=== PATIENT | female | born 1965 | race Hispanic/Latino ===

== ENCOUNTER → 2020-05-11 | Outpatient (CLI) | payer BC | END | disposition home or self-care (01) | LOC: RAH 10:09 | PROVIDERS: ATTEND Internal Medicine Cardiovascular Disease | DX: R07.89 Other chest pain (principal); V89.2XXA Person injured in unspecified motor-vehicle accident, traffic, initial encounter; X58.XXXA Exposure to other specified factors, initial encounter; Y93.89 Activity, other specified; Y92.89 Other specified places as the place of occurrence of the external cause; Y99.8 Other external cause status | CPT/HCPCS: 93306; 93356 ==

== ENCOUNTER 2023-08-13 17:00 | Emergency (ER) | payer OTHER, MEDICARE ==
[~2023-08-13] VITALS: Ht 152.4 cm; Wt 58.1 kg
[2023-08-13 21:22] VITALS: BP 149/77; PULSE 66; RESP 19; O2SAT 97
[2023-08-13] MEDS: HYDROCODONE/ACETAMINOPHEN 5/325 MG TAB PO ONE (21:30)
[2023-08-13] MEDS ORDERED: ACET-2079 PO (21:42)
[2023-08-13] MEDS ORDERED: IBUP-2070 PO (21:42)
== END 2023-08-13 22:04 | disposition home or self-care (01) ==
LOC: EDH 17:00
DX: S52.612A Displaced fracture of left ulna styloid process, initial encounter for closed fracture (principal); S52.502A Unspecified fracture of the lower end of left radius, initial encounter for closed fracture; E11.9 Type 2 diabetes mellitus without complications; Z98.890 Other specified postprocedural states; W01.0XXA Fall on same level from slipping, tripping and stumbling without subsequent striking against object, initial encounter; Y93.89 Activity, other specified; Y92.89 Other specified places as the place of occurrence of the external cause; Y99.8 Other external cause status
CPT/HCPCS: 29125; 72100; 73030; 73090; 73110; 73130

== ENCOUNTER 2025-05-15 09:27 | Emergency (ER) | payer OTHER ==
[~2025-05-15] VITALS: Ht 152.4 cm; Wt 57.6 kg
[2025-05-15 11:03] LABS: IMMATURE GRANULOCYTE ABSOLUTE 0.02 K/uL (0-1); NUCLEATED RED BLOOD CELLS 0.0 % (0.0-0.19); PLATELET COUNT (AUTO) 295 K/uL (130-400); RED BLOOD CELL COUNT(AUTO) 5.04 MIL/uL (4.00-5.50); RED CELL DISTRIBUTION WIDTH 12.8 % (11.0-15.5); WHITE BLOOD COUNT (AUTO) 7.1 K/uL (4.8-10.8)
[2025-05-15] MEDS: 0.9%NACL 1000ML 1,000 ML IV ONE (11:05)
[2025-05-15 11:14] LABS: CREATININE 0.6 mg/dL (0.5-1.0); GLOMERULAR FILTR. RATE CALC 103.0 mL/min (>90); GLUCOSE,RANDOM 104.0 mg/dL (70-105); SODIUM SERUM 139.0 mmol/L (136-145); UREA NITROGEN, BLOOD 12.0 mg/dL (7-18)
[2025-05-15 11:18] LABS: ASPARTATE AMINOTRANSFERASE 19.0 U/L (10-37); CREATINE KINASE, TOTAL 67.0 U/L (21-232); TOTAL PROTEIN, SERUM 7.6 g/dL (6.0-8.3)
--- NOTE | 2025-05-15 11:24 | HMCIMG ---
EXAM: CT Abdomen and Pelvis Without IV contrast CLINICAL HISTORY: left flank pain TECHNIQUE: Axial computed tomography images of the abdomen and pelvis without intravenous contrast. CONTRAST: No IV contrast. COMPARISON: None provided. FINDINGS: LUNG BASES: The lung bases appear clear. No pleural effusions are seen. LIVER: Unremarkable. GALLBLADDER AND BILE DUCTS: The gallbladder appears within normal limits. No radioopaque gallstones are seen. No biliary ductal dilatation is evident. PANCREAS: Unremarkable. SPLEEN: Unremarkable. ADRENAL GLANDS: Unremarkable. KIDNEYS, URETERS, AND BLADDER: The kidneys appear within normal limits. There is no hydronephrosis or hydroureter. No urinary calculi are seen. STOMACH AND BOWEL: Unremarkable appearance of the stomach and bowel. No evidence of bowel obstruction. No evidence suggesting enteritis or colitis. APPENDIX: No evidence of acute appendicitis on CT examination. PERITONEUM: No free fluid. No free air. LYMPH NODES: No lymphadenopathy is evident. REPRODUCTIVE: Unremarkable as visualized. VASCULATURE: No evidence of abdominal aortic aneurysm. BONES: No aggressive appearing osseous lesion. No acute osseous pathology evident. IMPRESSION: No acute intra-abdominal or pelvic abnormality. /Lucille
--- NOTE | 2025-05-15 13:24 | EKG ---
[facility] Test Date: 2025-05-15 Test Time: 10:43:48 Pat Name: GIOVANNY CHOUDHURY Department: [facility] Room: Gender: F Technical Producer: [id number] : [id number] Requested By: GERMAN JETT Order Number: [id number] Reading MD: Vitaliy Garrett Measurements Intervals [place] Rate: 64 P: 54 [place]: 154 QRS: -36 QRSD: 89 T: 63 QT: 412 QTc: 427 Interpretive Statements Sinus rhythm Left axis deviation No previous ECG available for comparison Electronically Signed On 05-16-2025 08:51:06 HULL DRAFTER by Vitaliy Garrett Please click the below link to view image of tracing.
[2025-05-15 14:33] LABS: APPEARANCE,URINE CLEAR (CLEAR); GLUCOSE, URINE (UA) >=1000 mg/dL (NEGATIVE); LEUKOCYTE ESTERASE ,URINE NEGATIVE Leu/uL (NEGATIVE); NITRATE,URINE NEGATIVE (NEGATIVE); OCCULT BLOOD,URINE NEGATIVE (NEGATIVE)
[2025-05-15 14:35] LABS: ADD UA MICROSCOPIC YES
[2025-05-15 14:38] LABS: SQUAMOUS EPITHELIAL CELL,UR FEW /HPF (0-2)
--- NOTE | 2025-05-15 15:57 | ERN ---
ED Note History of Present Illness Stated Complaint: ABDOMINAL PAIN Chief Complaint: Abdominal Pain Time Seen by MD: 09:48 Dictation: 60-year-old female with lower abdominal pain radiates to left side, patient has recent history of UTI currently has midline catheter for IV antibiotics, patient denies fever chest pain shortness of breath or vomiting. Allergies: Coded Allergies: No Known Allergies (Unverified Allergy, Unknown, 08/13/23) Home Meds Active Scripts Insulin Lispro (Insulin Lispro) 100 Unit/Ml Vial, 10 UNIT SQ AD, #3 VIAL Prov:BASILIO DOS SANTOS IV, MD 04/28/25 Insulin Glargine,Hum.rec.anlog (Lantus Solostar) 100 Unit/Ml (3 Ml) Insuln.pen, 20 UNIT SQ HS for 30 Days, #6 ML 0 Refills Prov:BASILIO DOS SANTOS IV, MD 04/28/25 Reported Medications Celecoxib (Celecoxib) 100 Mg Capsule, 1 CAP PO DAILY for 10 Days, #20 CAP 0 Refills 04/25/25 Fluticasone Propionate (Flonase Nasal [place]) 50 Mcg/Actuation [place], 2 SPRAY NS DAILY, #16 GM 0 Refills 04/25/25 Loratadine (Loratadine) 10 Mg Tablet, 1 TAB PO DAILY for allergy symptoms for 30 Days, #30 TAB 0 Refills 04/25/25 Dulaglutide (Trulicity) 0.75 Mg/0.5 Ml Pen.injctr, 0.75 MG SQ QWEEK 04/25/25 Dicyclomine HCl (Dicyclomine HCl) 10 Mg Capsule, 1 CAP PO Q6HPRN PRN for irritable bowel symptoms for 25 Days, #100 CAP 0 Refills 04/25/25 Pregabalin (Pregabalin) 50 Mg Capsule, 1 CAP PO TID MDD 3 Capsule(s) for 30 Days, #90 CAP 0 Refills 04/25/25 Aspirin (Aspirin) 81 Mg Tab.chew, 1 TAB PO DAILY for 30 Days, #30 TAB 0 Refills 04/25/25 Hydroxyzine HCl (Hydroxyzine HCl) 10 Mg Tablet, 1 TAB PO DAILY for anxiety for 30 Days, #60 TAB 0 Refills 04/25/25 Cyclobenzaprine HCl (Cyclobenzaprine HCl) 5 Mg Tablet, 1 TAB PO HSPRN PRN for muscle spasms for 30 Days, #30 TAB 0 Refills 04/25/25 Lisinopril (Lisinopril) 2.5 Mg Tablet, 1 TAB PO DAILY for 30 Days, #30 TAB 0 Refills 04/25/25 Atorvastatin Calcium (Atorvastatin Calcium) 20 Mg Tablet, 1 TAB PO DAILY for 30 Days, #30 TAB 0 Refills 04/25/25 Esomeprazole Magnesium (Esomeprazole Magnesium) 40 Mg Capsule.dr, 1 CAP PO DAILY for 30 Days, #30 CAP 0 Refills 04/25/25 Duloxetine HCl (Duloxetine HCl) 60 Mg Capsule.dr, 1 CAP PO DAILY for 30 Days, #30 CAP 0 Refills 04/25/25 Empagliflozin (Jardiance) 10 Mg Tablet, 1 TAB PO DAILY for 30 Days, #30 TAB 0 Refills 04/25/25 Past Medical History Past Medical History: Arthritis, Diabetes-Type I, Diabetes-Type II, High Cholesterol, Hypertension Surgical History: Other Surgical History Other: CARPAL TUNNEL BILATERAL Social History: Negative, Lives with family History: Not Applicable Review of System Dictation Constitutional: Negative for fever,chills, and weight loss Eyes: Negative for injury, pain,redness, and discharge ENT: Negative for injury,pain or swelling Cardiovascular: Negative for chest pain, palpitations, and edema Respiratory: Negative for shortness of breath, cough, and wheezing, Abdomen/GI: Negative for abdominal pain, nausea, vomiting, diarrhea, and constipation Back: Per HPI : Per HPI MS/Extremity: Negative for injury and deformity Skin: Negative for rash, and discoloration Neuro: Negative for headache, weakness, numbness, tingling, and seizure Psych: Negative for suicide ideation, homicidal ideation, and hallucinations Initial Vital Sign VS Vital Signs Date Time Temp Pulse Resp B/P (MAP) Pulse Ox O2 Delivery O2 Flow Rate FiO2 05/15/25 09:28 98.2 71 20 116/68 99 Room Air 05/15/25 11:19 0 21 Physical Exam Dictation General: awake, alert, NAD Head/Face: Normocephalic, atraumatic Eyes: PERRL, EOMI, vision at baseline ENT: oral cavity clear, TMs clear, no signs of infection Neck: Trachea midline, supple, no nuchal rigidity Cardiovascular: RRR, normal S1/S2, No MRGs, no JVD Respiratory: CTAB, no respiratory distress, No rales or wheezes Abdomen: Soft, non-tender, non-distended, normal bowel sounds, no guarding or rebound. Skin: Warm, dry, normal turgor, no rash MS/Extremity: Pulses equal, no cyanosis, neurovascular intact, FROM Neuro: COAx4, GCS 15, strength 5/5, CN 2-12 intact, normal cerebellar exam, normal gait, Psych: Normal behavior, mood, and affect normal Results (Laboratory/Radiology) Laboratory/Radiology Laboratory Tests Test 05/15/25 10:03 05/15/25 13:50 White Blood Count 7.1 K/uL (4.8-10.8) Red Blood Count 5.04 MIL/uL (4.00-5.50) Hemoglobin 14.4 g/dL (12.0-16.0) Hematocrit 45.8 % (36-48) Mean Corpuscular Volume 90.9 fL (79-99) Mean Corpuscular Hemoglobin 28.6 pg (27.0-33.0) Mean Corpuscular Hemoglobin Concent 31.4 g/dL (32.0-36.0) L Red Cell Distribution Width 12.8 % (11.0-15.5) Platelet Count 295 K/uL (130-400) Mean Platelet Volume 9.9 fL (7.5-10.5) Immature Granulocyte % (Auto) 0.3 % (0-1) Neutrophils (%) (Auto) 67.4 % (40.0-77.0) Lymphocytes (%) (Auto) 21.8 % (21.0-51.0) Monocytes (%) (Auto) 7.6 % (3.0-13.0) Eosinophils (%) (Auto) 2.2 % (0.0-8.0) Basophils (%) (Auto) 0.7 % (0.0-5.0) Neutrophils # (Auto) 4.8 K/uL (1.8-7.7) Lymphocytes # (Auto) 1.6 K/uL (1.0-4.8) Monocytes # (Auto) 0.5 K/uL (0.1-1.0) Eosinophils # (Auto) 0.16 K/uL (0.00-0.70) Basophils # (Auto) 0.05 K/uL (0.00-0.20) Absolute Immature Granulocyte (auto 0.02 K/uL (0-1) Nucleated Red Blood Cells 0.0 % (0.0-0.19) Sodium Level 139 mmol/L (136-145) Potassium Level 3.9 mmol/L (3.5-5.1) Chloride Level 103 mmol/L (101-111) Carbon Dioxide Level 27 mmol/L (21-32) Blood Urea Nitrogen 12 mg/dL (7-18) Creatinine 0.6 mg/dL (0.5-1.0) Glomerular Filtration Rate Calc 103 mL/min (>90) Random Glucose 104 mg/dL (70-105) Total Calcium 9.4 mg/dL (8.5-10.1) Total Bilirubin 0.7 mg/dL (0.2-1.0) Direct Bilirubin 0.2 mg/dL (0.0-0.3) Aspartate Amino Transf (AST/SGOT) 19 U/L (10-37) Alanine Aminotransferase (ALT/SGPT) 24 U/L (12-78) Alkaline Phosphatase 75 U/L (50-136) Total Creatine Kinase 67 U/L (21-232) Troponin I High Sensitivity 7 ng/L (4-50) Total Protein 7.6 g/dL (6.0-8.3) Albumin 4.5 g/dL (3.5-5.0) Lipase 50 U/L (16-77) Urine Color LIGHT-YELLOW (YELLOW) Urine Appearance CLEAR (CLEAR) Urine pH 5.5 (5.0-8.0) Urine Specific [place] 1.032 (1.001-1.031) Urine Protein NEGATIVE mg/dL (NEGATIVE) Urine Glucose (UA) >=1000 mg/dL (NEGATIVE) H Urine Ketones 10 mg/dL (NEGATIVE) H Urine Occult Blood NEGATIVE (NEGATIVE) Urine Nitrate NEGATIVE (NEGATIVE) Urine Bilirubin NEGATIVE mg/dL (NEGATIVE) Urine Urobilinogen 0.2 mg/dL (0.2-1.0) Urine Leukocyte Esterase NEGATIVE [place]/uL Urine RBC 11-25 /HPF (0-1) H Urine WBC 6-10 /HPF (0-1) H Urine Squamous Epithelial Cells FEW /HPF (0-2) Urine Bacteria RARE /HPF (None Seen) Labs Reviewed?: Yes EKG Comment: Heart rate 64 normal sinus rhythm normal intervals no STEMI or STEMI equivalent ED Course ED Course Orders Procedure Category Date Status Time 12 Lead Ekg Tracing- EKG 05/15/25 Complete Technical 09:51 Basic Metabolic Panel LAB 05/15/25 Complete 09:51 Cbc With Differential LAB 05/15/25 Complete 09:51 Hepatic Function Panel LAB 05/15/25 Complete 09:51 Creatine Kinase, Total LAB 05/15/25 Complete 09:51 Lipase LAB 05/15/25 Complete 09:51 Troponin I High LAB 05/15/25 Complete Sensitivity 09:51 Urinalysis Profile LAB 05/15/25 Logged 09:51 Ct Abd/Pel Wo Con CT 05/15/25 Resulted Renal/Appy 09:51 Ondansetron 4mg Inj PHA 05/15/25 Complete (Zofran 4mg Inj) 09:51 Ketorolac PHA 05/15/25 Complete Tromethamine 15mg/Ml 09:51 0.9%Nacl 1000ml (Ns PHA 05/15/25 Complete 1000ml) 10:00 Urinalysis Profile LAB 05/15/25 Complete 13:10 Culture Urine RONEY 05/15/25 In Process 14:39 Current Medications Medications (Trade) Dose Ordered Sig/Doreen Route PRN Reason Start Time Stop Time Status Last Admin Dose Admin Ketorolac Tromethamine (toRADol) 15 mg ONCE STAT IV 05/15/25 09:51 05/15/25 09:54 DC 05/15/25 11:06 Ondansetron HCl (zoFRAN 4MG INJ) 4 mg ONCE STAT IVP 05/15/25 09:51 05/15/25 09:54 DC 05/15/25 11:06 Sodium Chloride 1,000 ml @ 0 mls/hr ONCE ONCE IV 05/15/25 10:00 05/15/25 10:01 DC 05/15/25 11:05 Vital Signs Date Time Temp Pulse Resp B/P (MAP) Pulse Ox O2 Delivery O2 Flow Rate FiO2 05/15/25 11:19 97.5 73 18 128/61 96 Room Air* 0 21 05/15/25 09:28 98.2 71 20 116/68 99 Room Air Medical Decision Making MDM MDM: Differential diagnosis: Rationale: Tests considered and ordered secondary to shared decision making include: Previous outside records reviewed: Old ER visits. Risk of complication and/or morbidity or mortality of patient management: None Medications-Per medication reconciliation Need for hospitalization: Patient does not meet criteria for hospitalization. Need for emergency major/minor surgery: No There are no social concerns with this patient. Prescription drug management Prescriptions will include symptomatic care Patient's prior external medical records from other ER visits were reviewed by me as indicated. Prior testing and results from previous visits were reviewed. Prior tests were taken into account with medical decision making and resource utilization, independent historian/historians were used to obtain complete medical history. I independently interpreted the test that were performed, results were reviewed by me and considered findings on radiology if ordered. Medical management and examination interpretation discussions were had by me with other qualified healthcare professionals as indicated for the patient's care. 60-year-old female with right flank pain recent UTI, receiving outpatient an tibiotics, stable exam and workup UA clear CT clear symptoms improved stable for discharge DX & DISP Disposition: Discharge Departure Impression: Primary Impression: Right flank pain Condition: Stable Referrals: TRUPTI ADAN MD (PCP) GERMAN JETT MD May 15, 2025 15:57
[2025-05-15 16:06] VITALS: BP 122/60; PULSE 66; RESP 17; TEMP 98; O2SAT 98
== END 2025-05-15 16:50 | disposition home or self-care (01) ==
LOC: EDH 09:27
DX: R10.A1 Flank pain, right side (principal); I10 Essential (primary) hypertension; E78.00 Pure hypercholesterolemia, unspecified; E10.9 Type 1 diabetes mellitus without complications; M19.90 Unspecified osteoarthritis, unspecified site; Z79.84 Long term (current) use of oral hypoglycemic drugs; Z79.899 Other long term (current) drug therapy; Z79.1 Long term (current) use of non-steroidal anti-inflammatories (NSAID); Z79.82 Long term (current) use of aspirin; Z79.4 Long term (current) use of insulin
CPT/HCPCS: 99285; 74176; 96374; 96361; 96375; 82550; 80076; 84484; 80048; 83690; 85025; 87086 ×3; 87186 ×2; 81001; 36415; 93005; J1885; J7030; J2405